=== PATIENT | female | born 1970 | race Caucasian/White ===

== ENCOUNTER 2022-11-19 14:30 | Outpatient (AMB) | payer OTHER, SELFPAY ==
--- NOTE | 2022-11-19 14:32 | MHC.OFFVIS ---
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 She reports she'd been having hallucinations x 3 days back in May. She has since established herself with a psych and they have resolved. She was started on Sertraline and Clonidine and this appears to be working. She reports sleep disturbances, she states she does not have trouble falling asleep, but she does have difficulty sleeping throughout the night. Allergies acetaminophen [From Percocet] Allergy (Intermediate, Verified 11/19/22 14:40) Anxiety oxycodone [From Percocet] Allergy (Intermediate, Verified 11/19/22 14:40) Anxiety Sulfa (Sulfonamide Antibiotics) Allergy (Intermediate, Verified 11/19/22 14:40) Anaphylaxis Medication List - Last Reconciled 11/19/22 by Lizette Walton MD amlodipine 2.5 mg PO BID aripiprazole (Abilify) 5 mg PO DAILY azelastine 1 spray intranasal BID clonidine HCl 0.1 mg PO BEDTIME epinephrine 0.3 mg IM Q4H PRN fluticasone propionate 50 mcg/actuation (Allergy Relief (fluticasone)) 2 sprays intranasal DAILY hydroxyzine HCl 25 mg PO BEDTIME levothyroxine 25 mcg PO DAILY ondansetron 4 mg PO Q8H sertraline 50 mg PO DAILY HPI HPI Comments History of Present Illness Details 51y/o female comes for neurological evaluation. About 6 months ago she started having hallucinations, anxiety, panic attacks, depression,her BP was high. she started seeing people and hearing people. she was working 60 hrs a week and was not sleeping well. she stopped working and was seen by psychiatrist 2 months ago and was started on sertraline and abilify. since then her anxiety is better, hallucinations have resolved.She still feels depressed but sleeping better. she has loud snoring and villa s3-4 arousals. No gasping arousals.she also ahs hypersomnia. She gained 27 lbs in the past 2 months. No other neurological symptoms. No suicidal thoughts. [facility] Medical History (Updated 11/19/22 @ 15:12 by Lizette Walton MD) Hypersomnia Sleep disorder Snoring HTN (hypertension) Hallucination Anxiety Depression Obesity Hypothyroid Rhinitis Iron deficiency anemia Glaucoma Surgical History (Updated 11/19/22 @ 14:44 by Christine Buchanan CMA) Hx of cholecystectomy H/O spinal fusion Family History (Updated 11/19/22 @ 14:48 by Christine Buchanan CMA) Mother HTN (hypertension) Cervical cancer Hearing loss Father No problems noted. Sister History of PCOS Daughter No problems noted. Social History (Updated 11/19/22 @ 14:49 by Christine Buchanan CMA) Household Members: Family Household Members Other:: sister Housing: House Alcohol intake: never Patient Tobacco Use Status: Never used Tobacco Use of substances other than those prescribed or required for medical reasons: No Review of Systems Const Reports daytime sleepiness, Reports difficulty sleeping, Reports headache(s), Reports lethargy, Reports malaise and Reports weight gain ENT Reports headache(s) Musc Reports arthralgias Neuro Reports headache(s) Psych Reports anxiety, Reports depression and Reports mood swings Physical Exam Vital Signs: Last Vital Signs Pulse 64 11/19/22 14:34 Resp 16 11/19/22 14:34 BP 146/90 H 11/19/22 14:34 Pulse Ox 95 11/19/22 14:34 Oxygen Delivery Method Room Air 11/19/22 14:34 BMI result Body Mass Index 36.5 Const General: cooperative, comfortable and no acute distress Nutritional Appearance: obese Orientation/consciousness: patient oriented x3 Eyes Pupils: Equal, round and reactive pupils present Neuro Other: Mallampatti grade 4 General: patient oriented x3, gait normal, tone normal, moves all extremities and no focal motor deficits Cranial nerves: Yes Facial sensation intact/muscles of mastication intact, Yes Equal, round and reactive pupils present, Yes Bilaterally intact EOM present, Yes Nystagmus not present, Yes Normal facial strength present, Yes Midline tongue present and Yes Symmetric palate elevation present Cognition (Neuro): normal cognition Gait exam (Neuro): Normal gait present Motor exam (neuro): 5/5 motor strength present throughout and Normal motor muscle tone present throughout Deep tendon reflexes (DTR's): Right triceps reflex intensity grade: 2+, Left triceps reflex intensity grade: 2+, Rt Biceps (C5, C6): 2+, Left biceps reflex intensity grade: 2+, Right brachioradialis reflex intensity grade: 2+, Left brachioradialis reflex intensity grade: 2+, Right patellar reflex intensity grade: 2+ and Left patellar reflex intensity grade: 2+ Coordination: [id number] test normal Psych Appearance: grossly normal Results Reviewed Results Reviewed: June 2022 MRI brain - Mild white matter changes Assessment & Plan Assessment & Plan (1) Hallucination: Comment: related to depression anxiety sleep deprivation Code(s): R44.3 - Hallucinations, unspecified (2) Sleep disorder: Comment: insomnia Code(s): G47.9 - Sleep disorder, unspecified (3) Snoring: Code(s): R06.83 - Snoring Plan SHe has a non focal neuro exam . Suggested to f/u with psychiatry Home sleep test to r/o sleep apnea. Orders: Orders RT home sleep study Today G47.10 - Hypersomnia, unspecified, G47.9 - Sleep disorder, unspecified, R06.83 - Snoring Coding Level of Care Code New Pt Level 4 (86957) Diagnoses Hallucination R44.3 Sleep disorder G47.9 Snoring R06.83
[2022-11-19 14:34] VITALS: BP 146/90; PULSE 64; RESP 16; O2SAT 95; BMI 36.5
== END 2022-11-19 15:15 | disposition home or self-care (01) ==
PROVIDERS: Visit Provider Psychiatry & Neurology Neurology
DX: R44.3 Hallucinations, unspecified (principal); G47.9 Sleep disorder, unspecified; R06.83 Snoring
CPT/HCPCS: 99204

== ENCOUNTER → 2022-11-19 14:30 | Outpatient (BNVA) | payer OTHER, SELFPAY | PROVIDERS: Visit Provider Psychiatry & Neurology Neurology ==

== ENCOUNTER → 2023-01-04 09:36 | Outpatient (REF) | payer OTHER, SELFPAY | LOC: HO.SL 09:36 | PROVIDERS: PCP Internal Medicine; Visit Provider Psychiatry & Neurology Neurology | DX: G47.9 Sleep disorder, unspecified (principal); G47.10 Hypersomnia, unspecified; R06.83 Snoring | CPT/HCPCS: 95806 ==

== ENCOUNTER → 2023-01-04 09:47 | Outpatient (BNV) | payer OTHER, SELFPAY | PROVIDERS: PCP Internal Medicine; Visit Provider Psychiatry & Neurology Neurology | DX: R06.83 Snoring (principal) | CPT/HCPCS: 95806 ==

== ENCOUNTER → 2023-02-02 20:30 | Outpatient (REF) | payer OTHER, SELFPAY | LOC: HO.SL 20:30 | PROVIDERS: PCP Internal Medicine; Visit Provider Nurse Practitioner Family | DX: G47.10 Hypersomnia, unspecified (principal); R06.83 Snoring; I10 Essential (primary) hypertension; G47.33 Obstructive sleep apnea (adult) (pediatric) | CPT/HCPCS: 95810 ==

== ENCOUNTER → 2023-02-02 23:39 | Outpatient (BNV) | payer OTHER, SELFPAY | PROVIDERS: PCP Internal Medicine; Visit Provider Psychiatry & Neurology Neurology | DX: G47.33 Obstructive sleep apnea (adult) (pediatric) (principal) | CPT/HCPCS: 95810 ==

== ENCOUNTER 2023-03-04 11:08 | Outpatient (AMB) | payer OTHER, SELFPAY ==
--- NOTE | 2023-03-04 11:13 | A.OFFVIS_ITS ---
Intake Vital Signs 03/04/23 11:17 Height 5 ft 9 in Weight 259 lb BMI 38.2 BP 130/80 Blood Pressure Location Rt brachial Position Sitting Pulse 65 Pulse Source Pulse Oximeter Pulse Oximetry (%) 93 Oxygen Delivery Method Room Air Intake Visit Reasons: 3m f/u Hallucinations - CONF Intake Note: Patient presents three months F/U Allergies acetaminophen [From Percocet] Allergy (Intermediate, Verified 03/04/23 11:16) Anxiety oxycodone [From Percocet] Allergy (Intermediate, Verified 03/04/23 11:16) Anxiety Sulfa (Sulfonamide Antibiotics) Allergy (Intermediate, Verified 03/04/23 11:16) Anaphylaxis HPI HPI Comments History of Present Illness Details 52 y/o female patient presents for follo w up of sleep study and hallucination. The PSG sleep study result was significant for a mild degree of sleep apnea with increased severity in REM sleep. The AHI was 7/hr, REM AHI was 32/hr and oxygen skyla was 80%. Advised patient to try APAP [id number]. Pt reports she had CPAP yesterday and tried. She slept much better for 7 hrs, not waking up in the middle of night. She feels more refreshed in the morning. Pt reported no more hallucination. [facility] Medical History (Updated 03/04/23 @ 14:41 by Dylon Sanchez CNP) Hypersomnia Sleep disorder Snoring HTN (hypertension) Hallucination Anxiety Depression Obesity Hypothyroid Rhinitis Iron deficiency anemia Glaucoma Surgical History Hx of cholecystectomy H/O spinal fusion Family History Mother HTN (hypertension) Cervical cancer Hearing loss Father No problems noted. Sister History of PCOS Daughter No problems noted. Social History Household Members: Family Household Members Other:: sister Housing: House Alcohol intake: never Patient Tobacco Use Status: Never used Tobacco Review of Systems Const All systems reviewed & are unremarkable except as noted in HPI and below Physical Exam Vital Signs: Last Vital Signs Pulse 65 03/04/23 11:17 BP 130/80 03/04/23 11:17 Pulse Ox 93 03/04/23 11:17 Oxygen Delivery Method Room Air 03/04/23 11:17 BMI result Body Mass Index 38.2 Const General: cooperative, comfortable and no acute distress Nutritional Appearance: obese Orientation/consciousness: patient oriented x3 Eyes Pupils: Equal, round and reactive pupils present Neuro Other: Mallampatti grade 4 General: patient oriented x3, gait normal, tone normal, moves all extremities and no focal motor deficits Cranial nerves: Yes Facial sensation intact/muscles of mastication intact, Yes Equal, round and reactive pupils present, Yes Bilaterally intact EOM present, Yes Nystagmus not present, Yes Normal facial strength present, Yes Midline tongue present and Yes Symmetric palate elevation present Cognition (Neuro): normal cognition Gait exam (Neuro): Normal gait present Motor exam (neuro): 5/5 motor strength present throughout and Normal motor muscle tone present throughout Deep tendon reflexes (DTR's): Right triceps reflex intensity grade: 2+, Left triceps reflex intensity grade: 2+, Rt Biceps (C5, C6): 2+, Left biceps reflex intensity grade: 2+, Right brachioradialis reflex intensity grade: 2+, Left brachioradialis reflex intensity grade: 2+, Right patellar reflex intensity grade: 2+ and Left patellar reflex intensity grade: 2+ Coordination: [id number] test normal Psych Appearance: grossly normal Assessment & Plan Assessment & Plan (1) EFRAIN on CPAP: Comment: Mild degree of sleep apnea with increased severity in REM. Pt is on APAP [id number]. Code(s): G47.33 - Obstructive sleep apnea (adult) (pediatric) Plan Advised patient to continue to use APAP [id number] as patient experiences good clinical effects, resting and refreshing sleep. Stressed compliance, use CPAP nightly and more than 4 hrs. Wt reduction advised. Coding Level of Care Code Est Pt Level 3 (08224) Diagnoses EFRAIN on CPAP G47.33
[2023-03-04 11:17] VITALS: BP 130/80; PULSE 65; O2SAT 93; BMI 38.2
== END 2023-03-04 11:29 | disposition home or self-care (01) ==
PROVIDERS: PCP Internal Medicine; Visit Provider Nurse Practitioner Family
DX: G47.33 Obstructive sleep apnea (adult) (pediatric) (principal)
CPT/HCPCS: 99213

== ENCOUNTER → 2023-03-04 11:08 | Outpatient (BNVA) | payer OTHER, SELFPAY | PROVIDERS: PCP Internal Medicine; Visit Provider Nurse Practitioner Family | DX: G47.33 Obstructive sleep apnea (adult) (pediatric) (principal) | CPT/HCPCS: 99212 ==

== ENCOUNTER 2023-05-13 09:44 | Outpatient (AMB) | payer OTHER, SELFPAY ==
--- NOTE | 2023-05-13 09:56 | MHC.OFFVIS ---
Intake Vital Signs 05/13/23 10:01 Height 5 ft 9 in Weight 258 lb 8 oz BMI 38.2 BP 124/80 Blood Pressure Location Lt brachial Position Sitting Pulse 63 Pulse Source Pulse Oximeter Pulse Oximetry (%) 94 Oxygen Delivery Method Room Air Intake Visit Reasons: 1 mo f/u Intake Note: Patient presents for 1 month F/U. Allergies acetaminophen [From Percocet] Allergy (Intermediate, Verified 05/13/23 10:00) Anxiety oxycodone [From Percocet] Allergy (Intermediate, Verified 05/13/23 10:00) Anxiety Sulfa (Sulfonamide Antibiotics) Allergy (Intermediate, Verified 05/13/23 10:00) Anaphylaxis HPI HPI Comments History of Present Illness Details 52 y/o female patient presents for follow up of sleep study. The PSG sleep study result was significant for a mild degree of sleep apnea with increased severity in REM sleep. The AHI was 7/hr, REM AHI was 32/hr and oxygen skyla was 80%. Pt started APAP at [id number]. The CPAP compliance and therapy response (02/10/23-05/10/23) reviewed. The usage days 63% and the average usage hours 7 hrs 20 min. The max pressure was 16.5 and and the residual AHI was 1.3/ hr. She can sleep 6-7 hrs without waking up in the middle of night. She feels rested and more awake in the morning. Daytime sleepiness has resolved. [facility]LY [facility] Medical History (Updated 03/04/23 @ 14:41 by Dylon Sanchez CNP) Hypersomnia Sleep disorder Snoring HTN (hypertension) Hallucination Anxiety Depression Obesity Hypothyroid Rhinitis Iron deficiency anemia Glaucoma Surgical History Hx of cholecystectomy H/O spinal fusion Family History Mother HTN (hypertension) Cervical cancer Hearing loss Father No problems noted. Sister History of PCOS Daughter No problems noted. Social History Household Members: Family Household Members Other:: sister Housing: House Alcohol intake: never Patient Tobacco Use Status: Never used Tobacco Review of Systems Const All systems reviewed & are unremarkable except as noted in HPI and below Physical Exam Vital Signs: Last Vital Signs Pulse 63 05/13/23 10:01 BP 124/80 05/13/23 10:01 Pulse Ox 94 05/13/23 10:01 Oxygen Delivery Method Room Air 05/13/23 10:01 BMI result Body Mass Index 38.2 Const General: cooperative, comfortable and no acute distress Nutritional Appearance: obese Orientation/consciousness: patient oriented x3 Eyes Pupils: Equal, round and reactive pupils present Neuro Other: Mallampatti grade 4 General: patient oriented x3, gait normal, tone normal, moves all extremities and no focal motor deficits Cranial nerves: Yes Facial sensation intact/muscles of mastication intact, Yes Equal, round and reactive pupils present, Yes Bilaterally intact EOM present, Yes Nystagmus not present, Yes Normal facial strength present, Yes Midline tongue present and Yes Symmetric palate elevation present Cognition (Neuro): normal cognition Gait exam (Neuro): Normal gait present Motor exam (neuro): 5/5 motor strength present throughout and Normal motor muscle tone present throughout Deep tendon reflexes (DTR's): Right triceps reflex intensity grade: 2+, Left triceps reflex intensity grade: 2+, Rt Biceps (C5, C6): 2+, Left biceps reflex intensity grade: 2+, Right brachioradialis reflex intensity grade: 2+, Left brachioradialis reflex intensity grade: 2+, Right patellar reflex intensity grade: 2+ and Left patellar reflex intensity grade: 2+ Coordination: [id number] test normal Psych Appearance: grossly normal Assessment & Plan Assessment & Plan (1) EFRAIN on CPAP: Comment: Mild degree of sleep apnea with increased severity in REM. Pt is on APAP [id number]. Code(s): G47.33 - Obstructive sleep apnea (adult) (pediatric) Plan Advised patient to continue to use APAP [id number] as patient experiences good clinical effects, resting and refreshing sleep. Stressed compliance, use CPAP nightly and more than 4 hrs. Wt reduction advised. Coding Level of Care Code Est Pt Level 3 (07814) Diagnoses EFRAIN on CPAP G47.33
[2023-05-13 10:01] VITALS: BP 124/80; PULSE 63; O2SAT 94; BMI 38.2
== END 2023-05-13 10:11 | disposition home or self-care (01) ==
PROVIDERS: PCP Internal Medicine; Visit Provider Nurse Practitioner Family
DX: G47.33 Obstructive sleep apnea (adult) (pediatric) (principal)
CPT/HCPCS: 99213

== ENCOUNTER → 2023-05-13 09:44 | Outpatient (BNVA) | payer OTHER, SELFPAY | PROVIDERS: PCP Internal Medicine; Visit Provider Nurse Practitioner Family | DX: G47.33 Obstructive sleep apnea (adult) (pediatric) (principal) | CPT/HCPCS: 99212 ==

== ENCOUNTER 2024-05-30 15:18 | Outpatient (AMB) | payer OTHER, SELFPAY ==
--- NOTE | 2024-05-30 15:30 | MHC.OFFVIS ---
Vital Signs 05/30/24 15:32 Height 5 ft 9 in Weight 269 lb BMI 39.7 BP 120/90 H Blood Pressure Location Lt brachial Position Sitting Pulse 67 Pulse Source Pulse Oximeter Pulse Oximetry (%) 96 Oxygen Delivery Method Room Air Intake Visit Reasons: Follow up Intake Note: Patient presents follow up EFRAIN. Compliance in chart. Financial Quantitative Analyst Required: No Accompanied by: Self / Same As Patient Allergies acetaminophen [From Percocet] Allergy (Intermediate, Verified 05/30/24 15:33) Anxiety oxycodone [From Percocet] Allergy (Intermediate, Verified 05/30/24 15:33) Anxiety Sulfa (Sulfonamide Antibiotics) Allergy (Intermediate, Verified 05/30/24 15:33) Anaphylaxis HPI Comments Details: 53 y/o female patient presents for follow up of obstructive sleep apnea Patient denies any significant interval medical history changes. 02/02/2023, in-lab PSG sleep study result was significant for a mild degree of sleep apnea with increased severity in REM sleep. AHI 7/hr, REM AHI 32/hr and oxygen skyla 80%, with SpO2 under 88% for 16 minutes of study time. Average SpO2 90%. Moderate snoring. Periodic limb movement of sleep 8 per hour with PLMS arousal index 3 per hour. Since last visit, patient has continued to use APAP therapy we will good effect. Patient continues to feel that she is sleeping better and has increased daytime energy. She states she is tolerating CPAP well. She reports she has enough CPAP supplies. She reports she cleans her CPAP supplies routinely. She states she consistently uses distilled water in her CPAP water tank reservoir. PAP compliance report reviewed: CPAP compliance report 02/23/2024-05/22/2024 Overall usage 94% Usage greater than 4 hours 91% Average usage on days used 8 hours and 49 minutes APAP 5-20 cm H2O with EPR 2 Maximum pressure 17 cm H2O Average leaks 0 L/min Residual AHI 1 event per hour [facility] Medical History (Updated 03/04/23 @ 14:41 by Dylon Sanchez CNP) Hypersomnia Sleep disorder Snoring HTN (hypertension) Hallucination Anxiety Depression Obesity Hypothyroid Rhinitis Iron deficiency anemia Glaucoma Surgical History Hx of cholecystectomy H/O spinal fusion Family History Mother HTN (hypertension) Cervical cancer Hearing loss Father No problems noted. Sister History of PCOS Daughter No problems noted. Social History Household Members: Family Household Members Other:: sister Housing: House Alcohol intake: never Patient Tobacco Use Status: Never used Tobacco Physical Exam Vital Signs: Last Vital Signs Pulse 67 05/30/24 15:32 BP 120/90 H 05/30/24 15:32 Pulse Ox 96 05/30/24 15:32 Oxygen Delivery Method Room Air 05/30/24 15:32 BMI result Body Mass Index 39.7 Const General: no acute distress Orientation/consciousness: patient oriented x3 Resp Effort & Inspection: normal respiratory effort and able to speak in complete sentences Neuro General: patient oriented x3 Psych Mental Status: mental status grossly normal Speech and movement: Clear speech present Attitude: cooperative Assessment & Plan Assessment & Plan (1) EFRAIN on CPAP: Comment: Mild degree of sleep apnea with increased severity in REM. Pt is on APAP [id number]. Code(s): G47.33 - Obstructive sleep apnea (adult) (pediatric) Category: Medical Plan For EFRAIN: Continue APAP 5-20 cmH2O w/ EPR 2 nightly > 4 hours, as pt continues to have good clinical effect from use. Clean CPAP machine and supplies routinely. Change CPAP supplies routinely. Use distilled water in CPAP water reservoir. Pt to contact us or respiratory company with any questions or concerns. Pt to follow-up in 12 months or sooner prn. Coding Level of Care Code Est Pt Level 3 (51132) Diagnoses EFRAIN on CPAP G47.33
[2024-05-30 15:32] VITALS: BP 120/90; PULSE 67; O2SAT 96; BMI 39.7
--- OUTSIDE RECORDS SUMMARY | 2024-05-30 18:04 | XMS_ITS | Clinical Summary ---
Author Organization [facility] [address] [place] [address] [place] [address] Phone Care Team Providers Care Extension Edger Name Role Phone Ham Joe MD Primary Care Provider [phone] Allergies Active Allergy Reactions Criticality Noted Date Comments Azithromycin 06/20/2017 Grass Pollen-Red Top, Standard 04/18/2019 Oxycodone-Acetaminophen Nausea And Vomiting Peanut 02/14/2018 Tongue swelling, throat itching and hives Warren 02/14/2018 Throat swelling Sulfa (Sulfonamide Antibiotics) Swelling 07/07/2018 Tongue swelling Sulfamethoxazole-Trimet hoprim 06/20/2017 Fainted - tried it twice Medications amLODIPine (NORVASC) 5 mg tablet Take 1 Tablet by mouth daily for 180 days. 05/31/19 24 Active ARIPiprazole (ABILIFY) 5 mg tablet Take 1 Tablet by mouth daily. 05/20/19 24 Active azelastine (ASTELIN) 137 mcg (0.1 %) nasal spray by Nasal route daily. Active amphetamine-dex troamphetamine (ADDERALL) 10 mg tablet Take 1 Tablet by mouth daily. Active EPINEPHrine (EpiPen 2-Valeriy) 0.3 mg/0.3 mL injection Inject 1 Device as directed as needed (anaphylaxis). Use as directed 04/25/19 21 Active fluticasone propionate (FLONASE) 50 mcg/actuation nasal spray INSTILL 2 SPRAYS BY NASAL ROUTE EVERY DAY NOT COVERED BY INSURANCE 05/04/19 23 Active hydrOXYzine HCL (ATARAX) 25 mg tablet Take 1 Tablet by mouth 3 times daily as needed. Active aluminum-magnes ium hydroxide-simet hicone (MAALOX) 200-200-20 mg/5 mL suspension Take 15 mL by mouth 4 times daily as needed for Other (reflux). 08/18/19 24 Active ondansetron (ZOFRAN) 4 mg tablet Take 1 Tablet by mouth every 8 hours as needed for Nausea. 12/14/19 23 Active pantoprazole (PROTONIX) 40 mg EC tablet Take 1 Tablet by mouth daily. Take in am After thyroid medication- take on empty stomach, wait 30 mins and then eat to activate the medication 08/18/19 24 Active sertraline (ZOLOFT) 50 mg tablet Take 1 Tablet by mouth daily. Active levothyroxine (SYNTHROID, LEVOTHROID) 50 mcg tabletIndicatio ns:Hypothyroidi sm, unspecified TAKE 1 TABLET BY MOUTH EVERY DAY 90 tablet 1 05/15/19 25 Active levothyroxine (SYNTHROID, LEVOTHROID) 50 mcg tablet Take 1 Tablet by mouth daily with the exception of Sundays, take 1.5 tablets 03/23/19 25 025 Discontinued Active Problems Problem Noted Date Diagnosed Date ADHD 05/31/2023 Overview (11/12/2023): Per external psych Gastroesophageal reflux disease 05/31/2023 Depression with anxiety 11/01/2022 Fatty liver 11/01/2022 Polyp of colon 11/01/2022 Vulvar lesion 11/18/2021 Overview (11/12/2023): Last Assessment & Plan: Patient to return for vulvar biopsy Narrow angle glaucoma suspect of both eyes 04/17 Iron deficiency anemia 04/05/2019 Chronic rhinitis 02/14/2018 Primary hypertension 02/14/2018 Hypothyroid 09/09/2017 Menorrhagia 09/09/2017 Obesity (BMI 35.0-39.9 without comorbidity) 04/2017 Encounters Date Type Department Care Team Description 04/26/2024 8:04 AM EDT - 04/26/2024 11:59 PM EDT Hospital Encounter Ultrasound - [place] [address] [place] [phone] Fatty liver Discharge Disposition: Home or Self Care 04/11/2024 Telephone Gastroenterology - [place] [address] [facility] [address] [place] [address] Rahul Mccurdy PA 04/10/2024 Telephone Internal Medicine - [facility] [address] [place] [phone] Ham Joe MD REFERRAL 03/02/2024 4:20 PM EST Office Visit Endocrinology [address] [phone] Karen Chakraborty PA Hypothyroidism, unspecified type (Primary Dx) from Last 3 Months Immunizations Name Administration Dates Next Due Pfizer SARS-CoV-2 COVID-19, mRNA, LNP-S, preservative free 09/19/2020,08/29/2020 Td Tetanus diptheria (Tdvax) 7yo and older 07/02 Surgical History Surgery Date Site/Laterality Comments OTHER SURGICAL HISTORY 1997 PROCEDURE: [place] ARTHRODESIS POSTERIOR SPINAL DFRM <6 VRT SGM; COMMENT: T9-T10, 14 inch rods w/bolts OTHER SURGICAL HISTORY 11/2017 PROCEDURE: ---- OTHER ----; COMMENT: Eye surgery - correct fluid circulation Medical History Medical History Date Comments Thyroid disease DX:Thyroid disea se Obesity (BMI 35.0-39.9 witho ut comorbidity) 09/09/2017 DX:Obesity (BMI 35.0-39.9 wi thout comorbidity) Hypothyroid 09/09/2017 DX:Hypothyroid Menorrhagia 09/09/2017 DX:Menorrhagia Iron deficiency anemia 04/05/2019 DX:Iron d eficiency anemia COVID-19 virus infection 03/03/2020 DX:COVI D-19 virus infection Depression with anxiety 11/01/2022 DX:Depre ssion with anxiety Polyp of colon 11/01/2022 DX:Polyp of colo n Fatty liver 11/01/2022 DX:Fatty liver Nausea and vomiting DX:Nausea an d vomiting Adhd 05/31/2023 DX:ADHD; COMMENT : Per external psych Esophageal reflux DX:Esophageal reflux Fatty liver DX:Fatty liver Family History Medical History Relation Name Comments No Known Problems Daughter No Known Problems Father No Known Problems Maternal Grandfather Diabetes Maternal Grandmother Other: heart disease Mother HTN, Ca taracts No Known Problems Paternal Grandfather Diabetes Paternal Grandmother No Known Problems Sister 1 No Known Problems Sister 2 Relation Name Status Comments Daughter Father Maternal Grandfather Alive Maternal Grandmother Alive Mother Paternal Grandfather Paternal Grandmother Sister 1 Sister 2 Social History Tobacco Use Types Packs/Day Years Used Date Smoking Tobacco: Never Smokeless Tobacco: Never Tobacco Cessation:Counseling Given: Not Answered Alcohol Use Standard Drinks/Week Comments No 0 (1 standard drink = 0.6 oz pur e alcohol) Comments Unknown Sex and Gender Information Value Date Recorded Sex Assigned at Not on file Legal Sex Female 11:26 AM EST Gender Identity Not on file Sexual Orientation Not on file Obstetrics History Last Filed Vital Signs Vital Sign Reading Time Taken Comments Blood Pressure 108/80 03/02/2024 3:48 PM EST Pulse 80 03/02/2024 3:48 PM EST Temperature 36.5 ??C (97.7 ??F) 03/02/2024 3:48 PM ES T Respiratory Rate - - Oxygen Saturation 99% 03/02/2024 3:48 PM EST Inhaled Oxygen Concentration - - Weight 119 kg (261 lb 9.6 oz) 03/02/2024 3:48 PM EST Height 175.3 cm (5' 9 ) 03/02/2024 3:48 PM EST Body Mass Index 38.63 03/02/2024 3:48 PM EST Plan of Treatment Upcoming Encounters Date Type Department Care Team (Late st Contact Info) Description 03/01/2025 4:20 PM EST Office Visit Endocrinology - [place] [address] [place] [address] Karen Chakraborty PA [address] [place] [address] Health Maintenance Due Date Last Done Comments Hepatitis A Vaccines (1 of 2 - Risk 2-dose series) 12/26/1990 Hepatitis B Vaccines (1 of 3 - 19+ 3-dose series) 12/26/1990 Pneumococcal Vaccine: 50+ Years (1 of 2 - PCV) 12/26/1990 Pneumococcal Vaccine: Pediatrics (0 to 5 Years) and At-Risk Patients (6 to 64 Years) (1 of 2 - PCV) 12/26/1990 Zoster Vaccines (1 of 2) 12/26/2021 HIV Screening 01/16/2022 Social Influencers of Health Screening 01/16/2022 COVID-19 Vaccine (3 - season) 2023 09/19/2020, 08/29/2020 Depression Screening 05/30/2024 05/31/2023 Hypertension/CHF/CAD Annual BMP Blood Test 07/19/2024 07/20/2023, 07/20/2023 Influenza Vaccine (Season Ended) 2024 Breast Cancer Screening 11/11/2024 11/12/19, 11/09/2021, 11/05/2020, Additional history exists Cervical Cancer Screening: HPV 11/17/2026 11/17/2021 DTaP,Tdap,and Td Vaccines (2 - Td or Tdap) 07/03/2027 07/02/2017 Cholesterol Screening (Lipid Panel) 07/19/2028 07/20/2023, 07/20/2023 Colorectal Cancer Screening: Colonoscopy 09/21/2032 09/21/2022 Hepatitis C Screening Completed 06/08/2022 HIB Vaccines Aged Out No longer eligi ble based on patient's age to complete this topic HPV Vaccines Aged Out No longer eligi ble based on patient's age to complete this topic IPV Vaccines Aged Out No longer eligi ble based on patient's age to complete this topic MMR Vaccines Aged Out No longer eligi ble based on patient's age to complete this topic Meningococcal ACWY Vaccine Aged Out N o longer eligible based on patient's age to complete this topic Meningococcal B Vaccine Aged Out No l onger eligible based on patient's age to complete this topic RSV Immunization Patients Under 20 months Aged Out No longer eligible based on patient's age to complete this topic Varicella Vaccines Aged Out No longer eligible based on patient's age to complete this topic Procedures Procedure Name Priority Date/Time Associated Diagnosis Comments US ABDOMEN LIMITED Routine 04/26/2024 8: 32 AM EDT Fatty liver TRIIODOTHYRONINE FREE Routine 03/02/2024 4:30 PM EST Hypothyroidism, unspecified type FREE THYROXINE WITH REFLEX TO FREE TRIIODOTHYRONINE Routine 03/02/2024 4:30 PM EST Hypothyroidism, unspecified type THYROID STIMULATING HORMONE WITH REFLEX TO FREE T4 AND FREE T3 Routine 03/02/2024 4:30 PM EST Hypothyroidism, unspecified type THYROXINE FREE Routine 03/02/2024 4:30 PM EST Hypothyroidism, unspecified type ANNUAL BMP BLOOD TEST Routine 07/20/2023 LIPID PANEL Routine 07/20/2023 DEPRESSION SCREENING Routine 05/31/2023 SCREENING MAMMOGRAPHY BI 2-VIEW BREAST INC CAD Routine 11/11/2022 4:39 PM EDT Encounter for screening mammogram for malignant neoplasm of breast COLONOSCOPY Routine 09/21/2022 HEPATITIS C SCREENING Routine 06/08/2022 HPV Routine 11/17/2021 from Last 3 Months or Most Recently Relevant to Health Maintenance Results * US Abdomen Limited (04/26/2024 8:32 AM EDT) Anatomical Region Laterality Modality Body Ultrasound 04/26/2024 10:3 5 AM EDT Narrative 04/26/2024 10:37 AM EDT Abdominal ultrasound, Limited examination. History fatty liver. Comparison with prior studies, latest from 08/12/2023. Gallbladder is surgically absent. There is no biliary ducts dilatation. Common biliary duct measures 6 mm. Liver measures 19 cm in long axis. It revealed coarse increased echogenicity which could be due to steatosis or chronic hepatocellular disease. There is normal flow in portal vein. Pancreas is mostly obscured due to body habitus and bowel gas artifact. Right kidney is unremarkable. There is no ascites. CONCLUSIONS: Status post cholecystectomy. Abnormal echogenicity of the liver which could be due to steatosis or chronic hepatocellular disease. No focal lesions were identified. -------- FINAL REPORT -------- Dictated By: Dianne Samson Dictated Date: 04/26/2024 10:35 ET Assigned Physician: Dianne Samson Reviewed and Electronically Signed By: Dianne Samson Signed Date: 04/26/2024 10:37 ET Workstation ID: [id number] Transcribed By: Self Edit Transcribed Date: 04/26/2024 10:35 ET Procedure Note Dianne Samson MD - 04/26/2024 Abdominal ultrasound, Limited examination. History fatty liver. Comparison with prior studies, latest from 08/12/2023. Gallbladder is surgically absent. There is no biliary ducts dilatation.Common biliary duct measures 6 mm. Liver measures 19 cm in long axis. It revealed coarse increasedechogenicity which could be due to steatosis or chronic hepatocellulardisease. There is normal flow in portal vein. Pancreas is mostly obscureddue to body habitus and bowel gas artifact. Right kidney is unremarkable.There is no ascites. CONCLUSIONS: Status post cholecystectomy. Abnormal echogenicity of theliver which could be due to steatosis or chronic hepatocellular disease.No focal lesions were identified. -------- FINAL REPORT -------- Dictated By: Dianne Samson Dictated Date: 04/26/2024 10:35 ET Assigned Physician: Dianne Samson Reviewed and Electronically Signed By: Dianne Samson Signed Date: 04/26/2024 10:37 ET Workstation ID: [id number] Transcribed By: Self Edit Transcribed Date: 04/26/2024 10:35 ET us Rahul MUKHERJEE IMRashi US PROCEDURES Final Result * (ABNORMAL) Thyroid stimulating hormone with reflex to free t4 and free t3 (03/02/2024 4:30 PM EST) TSH 4.73(H) 0.40 - 4.00 mcIU/mL LAB CHEMISTRY METHOD 03/02/2024 7:21 PM EST [facility] Blood Venous blood specimen / Unknown Venipuncture / Unknown 03/02/2024 4:30 PM EST 03/02/2024 4:30 PM EST us Karen MUKHERJEE LAB BLOOD ORDERABLES Final Resul t Performing Organization Address [facility] Co de Phone Number [facility] [address] [place] [address], [place] [phone] * Free thyroxine with reflex to free triiodothyronine (03/02/2024 4:30 PM EST) Free T4 0.83 0.70 - 1.80 ng/dL LAB CHEMISTRY METHOD 03/02/2024 7:48 PM EST [facility] Blood Venous blood specimen / Unknown Venipuncture / Unknown 03/02/2024 4:30 PM EST 03/02/2024 4:30 PM EST us Karen MUKHREJEE LAB BLOOD ORDERABLES Final Resul t Performing Organization Address [facility] de Phone Number [facility] [address] [place] [address], [place] [phone] * Triiodothyronine free (03/02/2024 4:30 PM EST) T3, Free 284 230 - 420 pcg/dL LAB CHEMISTRY METHOD 03/02/2024 8:14 PM EST [facility] Blood Venous blood specimen / Unknown Venipuncture / Unknown 03/02/2024 4:30 PM EST 03/02/2024 4:30 PM EST us Karen MUKHERJEE LAB BLOOD ORDERABLES Final Resul t Performing Organization Address [facility] de Phone Number [facility] [address] [place] [address], [place] [phone] * Thyroxine free (03/02/2024 4:30 PM EST) Free T4 0.94 0.70 - 1.80 ng/dL LAB CHEMISTRY METHOD 03/02/2024 7:21 PM EST [facility] Blood Venous blood specimen / Unknown Venipuncture / Unknown 03/02/2024 4:30 PM EST 03/02/2024 4:30 PM EST Karen MUKHERJEE LAB BLOOD ORDERABLES Final Resul t [facility] [address] [place] [address], * Annual BMP Blood Test (07/20/2023) Annual BMP Blood Test abstracted Historical Provider HEALTH MAINTENANCE Final Result * (ABNORMAL) Lipid panel (07/20/2023) LDL/HDL Ratio 5(A) 0 - 4 Triglycerides 124 0 - 150 mg/dL Cholesterol 219(A) 0 - 200 mg/dL HDL 41 >=40 mg/dL LDL Cholesterol 154(A) 0 - 100 mg/dL Blood Venous blood specimen / Unknown Historical Provider LAB BLOOD ORDERABLES Zunilda l Result * Depression Screening (05/31/2023) Depression Screening abstracted Historical Provider HEALTH MAINTENANCE Final Result * SCREENING MAMMOGRAPHY BI 2-VIEW BREAST INC CAD (11/11/2022 4:39 PM EDT) Anatomical Region Laterality Modality Radiographic Ursula ging 11/09/2021 4:47 PM EDT Narrative 11/12/2022 4:35 PM EDT This is a summary report. The complete report is available in the patient's medical record. If you cannot access the medical record, please contact the sending organization for a detailed fax or copy. Study: SCREENING MAMMOGRAPHY BI 2-VIEW BREAST INC CAD Technique: Bilateral full-field digital screening mammography is obtained and read in conjunction with computer aided detection. ??Tomosynthesis as well as 2D C-View imaging were obtained. Comparison: Comparison made to multiple prior, most recent November 05, 2020, and most remote January 26, 2018. Breast composition: There are scattered areas of fibroglandular density. Bilateral breasts: No significant masses, suspicious calcifications or other abnormalities are seen in either breast. IMPRESSION: Impression: Bilateral breasts: Negative, no specific mammographic evidence of malignancy. ??Normal interval follow-up is recommended in 12 months. BI-RADS: Category 1: Negative Procedure Note Nu Hopkins L - 03/15/2023 This is a summary report. The complete report is available in thepatient's medical record. If you cannot access the medical record, pleasecontact the sending organization for a detailed fax or copy. Study: SCREENING MAMMOGRAPHY BI 2-VIEW BREAST INC CAD Technique: Bilateral full-field digital screening mammography is obtainedand read in conjunction with computer aided detection. Tomosynthesis aswell as 2D C-View imaging were obtained. Comparison: Comparison made to multiple prior, most recent October, and most remote January 26, 2018. Breast composition: There are scattered areas of fibroglandular density. Bilateral breasts: No significant masses, suspicious calcifications orother abnormalities are seen in either breast. IMPRESSION: Impression: Bilateral breasts: Negative, no specific mammographic evidence ofmalignancy. Normal interval follow-up is recommended in 12 months. BI-RADS: Category 1: Negative Ham Joe MD IMG XR PROCEDURES Final R esult * Colonoscopy (09/21/2022) [facility] Colonoscopy abstracted, no interpretation Anatomical Region Laterality Modality Other [facility] Provider HEALTH MAINTENANCE Final Result * Hepatitis C Screening (06/08/2022) [facility] Hepatitis C Screening abstracted [facility] Provider HEALTH MAINTENANCE Final Result * Cervical Cancer Screening: HPV (11/17/2021) [facility] Cervical Cancer Screening: HPV abstracted, negative [facility] Provider HEALTH MAINTENANCE Final Result from Last 3 Months or Most Recently Relevant to Health Maintenance Insurance [facility] Care Teams Extension Edger Relationship Specialty Start Date End Date Ham Joe MD [address] [place] [phone] PCP - General Internal Medicine 08/18/17
== END 2024-05-30 15:45 | disposition home or self-care (01) ==
LOC: HO.HSMS 15:19
PROVIDERS: PCP Internal Medicine; Visit Provider Nurse Practitioner Family
DX: G47.33 Obstructive sleep apnea (adult) (pediatric) (principal)
CPT/HCPCS: 99213

== ENCOUNTER → 2024-05-30 15:18 | Outpatient (BNVA) | payer OTHER, SELFPAY | PROVIDERS: PCP Internal Medicine; Visit Provider Nurse Practitioner Family ==